=== PATIENT | male | born 1945 | race Caucasian/White ===

== ENCOUNTER 2017-03-03 19:30 | Observation (INO) | payer MEDICARE, OTHER ==
[~2017-03-03] VITALS: Ht 182.9 cm; Wt 93.6 kg
[2017-03-03] MEDS ORDERED: ASPIRIN LO-DOSE81 MG PO (19:42)
[2017-03-03] MEDS ORDERED: PROSCAR5 MG PO (19:43)
[2017-03-03] MEDS ORDERED: LIPITOR10 MG PO (19:43)
[2017-03-03] MEDS ORDERED: COZAAR100 MG PO (19:44)
[2017-03-03] MEDS ORDERED: COREG6.25 MG PO (19:45)
[2017-03-03] MEDS ORDERED: COREG12.5 MG PO (19:45)
[2017-03-03] MEDS ORDERED: ZYRTEC10 MG PO (19:46)
[2017-03-03] MEDS ORDERED: NORVASC2.5 MG PO (19:47)
[2017-03-03] MEDS ORDERED: HYDRODIURIL25 MG PO (19:47)
[2017-03-03 21:42] LABS: BILIRUBIN URINE NEGATIVE (NEGATIVE); BLOOD URINE 10 /UL (NEGATIVE); COLOR URINE STRAW (YELLOW); GLUCOSE URINE NEGATIVE (NEGATIVE); KETONE URINE NEGATIVE (NEGATIVE); LEUKOCYTES URINE NEGATIVE /UL (NEGATIVE); NITRITE URINE NEGATIVE (NEGATIVE); PROTEIN URINE 30 mg/dL (NEGATIVE); SPEC GRAVITY URINE 1.005 (1.003-1.035); TURBIDITY URINE CLEAR (CLEAR); UROBILINOGEN URINE NORMAL (NORMAL)
[2017-03-03 21:55] LABS: RBC URINE 0-2 #/HPF (NEGATIVE); WBC URINE NEGATIVE #/HPF (NEGATIVE)
[2017-03-03 21:56] LABS: BACTERIA URINE RARE (NEGATIVE)
[2017-03-04 03:31] LABS: BASOPHIL % 0.2 %; EOSINOPHIL # 0.1 K/uL (0.0-0.5); EOSINOPHIL % 1.3 %; HEMATOCRIT 38.5 % (37.0-53.0); HEMOGLOBIN 13.2 g/dL (11.0-16.0); IMMATURE GRANULOCYTE % 0.3 %; LYMPHOCYTE # 1.1 K/uL (0.8-4.0); LYMPHOCYTE % 11.1 %; MCH 28.9 pg (27.0-34.0); MCHC 34.3 gm/dL (32.0-36.5); MCV 84.4 fl (83.0-98.0); MONOCYTE % 9.9 %; MPV 10.5 fl (9.4-12.4); NEUTROPHIL # (ANC) 7.4 K/uL (1.4-9.0); NEUTROPHIL % 77.2 %; NRBC % 0 /100WBC (0-0.00); PLATELET COUNT 153 K/uL (150-450); RBC 4.56 M/uL (3.50-5.50); RDW-CV 11.9 % (11.9-14.6); WBC 9.6 K/uL (4.0-11.0)
[2017-03-04 03:48] LABS: ANION GAP 12.2 (10.0-19.0); CALCIUM 8.7 mg/dL (8.5-10.5); CREATININE 1.7 mg/dL (0.6-1.3); POTASSIUM 4.2 mMol/L (3.7-5.1)
[2017-03-04] MEDS ORDERED: LEVAQUIN500 MG PO (12:48)
[2017-03-04] MEDS ORDERED: NORCO 5-325 TA1 EACH PO (12:54)
== END 2017-03-04 13:20 | disposition disaster alternative care site (69) ==
LOC: GPCU 19:30
PROVIDERS: ADMIT Family Medicine
DX: N10 Acute pyelonephritis (principal); N17.9 Acute kidney failure, unspecified; D72.829 Elevated white blood cell count, unspecified; I10 Essential (primary) hypertension; N40.0 Benign prostatic hyperplasia without lower urinary tract symptoms; Z79.82 Long term (current) use of aspirin; Z79.899 Other long term (current) drug therapy
CPT/HCPCS: G0378; J1650; J1956; J7030

== ENCOUNTER → 2017-03-03 | Outpatient (CLI) | payer MEDICARE, OTHER ==
[~2017-03-03] MED LIST: ASPIRIN LO-DOSE81 MG PO; COREG12.5 MG PO; COREG6.25 MG PO; COZAAR100 MG PO; HYDRODIURIL25 MG PO; LEVAQUIN500 MG PO; LIPITOR10 MG PO; NORCO 5-325 TA1 EACH PO; NORVASC2.5 MG PO; PROSCAR5 MG PO; ZYRTEC10 MG PO
== END | disposition disaster alternative care site (69) ==
LOC: GRAD 18:22
DX: R10.9 Unspecified abdominal pain (principal); N40.0 Benign prostatic hyperplasia without lower urinary tract symptoms; K44.9 Diaphragmatic hernia without obstruction or gangrene; K76.89 Other specified diseases of liver; N32.89 Other specified disorders of bladder; M54.9 Dorsalgia, unspecified